=== PATIENT | male | born 1950 | race Caucasian/White ===

== ENCOUNTER → 2021-12-26 13:54 | Outpatient (CLI) | payer OTHER, SELFPAY ==
--- NOTE | 2021-12-26 13:57 | DI.MRI.S_ITS ---
PROCEDURE: MR LUMBAR SPINE WO CON INDICATIONS: Radiculopathy, lumbar region TECHNIQUE: Noncontrast sagittal T1 spin echo and T2 fast echo, sagittal STIR, and T2 fast spin echo through the lumbar spine. In cases with scoliosis, additional coronal T2 fast spin echo may be performed. COMPARISON: [facility], CT, CT ABDOMEN PELVIS WITH CONTRAST, 05/05/2019, 11:50. FINDINGS: Image quality: Excellent. Alignment and Curvature: There is normal bony alignment. Bone Marrow: Marrow demonstrates a diffuse appearance of decreased T1 and T2 signal.. No acute vertebral body compression fractures. Spinal Cord: Conus medullaris terminates at the L1-2 level. Visualized cord demonstrates normal signal and size. Paraspinous Soft Tissues: No paravertebral masses. Discs: Moderate to severe desiccation is present throughout lumbar spine. L1-L2: Minimal disc bulge with minimal spinal stenosis. No foraminal narrowing. Facet hypertrophy is present as well as epidural lipomatosis. L2-L3: Mild disc bulge with mild spinal stenosis. No foraminal narrowing. Facet and ligamentum flavum hypertrophy as well as epidural lipomatosis is present. L3-L4: Mild disc bulge with [id number] spinal stenosis. Minimal left foraminal narrowing with facet and ligamentum flavum hypertrophy as well as epidural lipomatosis. L4-L5: Mild disc bulge with moderate spinal stenosis. Moderate left foraminal narrowing with facet and ligamentum flavum hypertrophy. L5-S1: Mild disc bulge with moderate spinal stenosis. Moderate to severe bilateral foraminal narrowing with facet and ligamentum flavum hypertrophy. IMPRESSION: Diffuse hypointense marrow signal as noted above. This could represent a paucity of marrow fat. Appearance is overall nonspecific. If there is a known history of malignancy, further evaluation is recommended. Alternately, MRI marrow exam may be obtained if concern is present. Multilevel foraminal narrowing predominantly secondary to disc bulge with contributing effect of facet/ligamentum flavum arthropathy and epidural lipomatosis. Foraminal narrowing most severe at L5-S1 secondary to facet arthropathy. Dictated by: Ping Townsend M.D. on 12/26/2021 at 16:40 Approved by: Ping Townsend M.D. on 12/26/2021 at 16:46
== END ==
PROVIDERS: Referring Provider Physical Medicine & Rehabilitation Pain Medicine; Visit Provider Physical Medicine & Rehabilitation Pain Medicine
DX: M51.17 Intervertebral disc disorders with radiculopathy, lumbosacral region (principal); M51.16 Intervertebral disc disorders with radiculopathy, lumbar region; M48.07 Spinal stenosis, lumbosacral region; M48.061 Spinal stenosis, lumbar region without neurogenic claudication
CPT/HCPCS: 72148